=== PATIENT | female | born 1995 | race African-American/Black ===

== ENCOUNTER 2019-01-23 21:59 | Emergency (ER) | payer OTHER ==
[~2019-01-23] VITALS: Ht 160 cm; Wt 59.0 kg
[2019-01-24] MEDS ORDERED: KETOROLAC 60MG/2ML VIAL IM ONE (00:15)
[2019-01-24] MEDS ORDERED: LIDOCAINE HCL/PF 1% 10 MG/ML 5ML VIAL IJ ONE (00:15)
[2019-01-24] MEDS ORDERED: BACITRACIN ZINC OINT UDPKT TOP ONE (00:15)
[2019-01-24 01:14] VITALS: BP 115/71
== END 2019-01-24 01:21 | disposition home or self-care (01) ==
LOC: ER 22:37
DX: S01.511A Laceration without foreign body of lip, initial encounter (principal); J45.909 Unspecified asthma, uncomplicated; Y04.0XXA Assault by unarmed brawl or fight, initial encounter; Y93.89 Activity, other specified; Y92.524 Gas station as the place of occurrence of the external cause
CPT/HCPCS: 40650; 81025; 96372; 99283; J1885; J3490; Z7610

== ENCOUNTER 2020-12-19 01:14 | Emergency (ER) | payer MEDICAID ==
[~2020-12-19] VITALS: Ht 157.5 cm; Wt 73.0 kg
[2020-12-19] MEDS ORDERED: IBUP-2029 MT (01:33)
[2020-12-19] MEDS ORDERED: AMOX-494 MT (01:33)
[2020-12-19] MEDS ORDERED: IBUPROFEN 800MG TABLET PO ONE (01:45)
[2020-12-19] MEDS ORDERED: AMOXICILLIN 500 MG CAPSULE PO ONE (01:45)
[2020-12-19 02:45] VITALS: BP 121/74
== END 2020-12-19 02:45 | disposition home or self-care (01) ==
LOC: ER 01:14
DX: K02.9 Dental caries, unspecified (principal); K08.89 Other specified disorders of teeth and supporting structures; R22.0 Localized swelling, mass and lump, head; J45.909 Unspecified asthma, uncomplicated
CPT/HCPCS: 81025; 99283

== ENCOUNTER 2021-04-01 23:25 | Emergency (ER) | payer MEDICAID, OTHER ==
[~2021-04-01] VITALS: Ht 157.5 cm; Wt 75.0 kg
[~2021-04-01 23:25] MED LIST: AMOX-494 MT; IBUP-2029 MT
[2021-04-02] MEDS ORDERED: IBUP-2028 MT (00:03)
[2021-04-02] MEDS ORDERED: IBUPROFEN 400MG TABLET PO ONE (00:15)
[2021-04-02 00:45] VITALS: BP 115/55
== END 2021-04-02 00:44 | disposition home or self-care (01) ==
LOC: ER 23:25
DX: M54.5 Low back pain (principal); J45.909 Unspecified asthma, uncomplicated; Z79.899 Other long term (current) drug therapy
CPT/HCPCS: 99282

== ENCOUNTER 2021-08-04 11:24 | Emergency (ER) | payer OTHER ==
[~2021-08-04] VITALS: Ht 157.5 cm; Wt 73.0 kg
[~2021-08-04 11:24] MED LIST changes: +IBUP-2028 MT
[2021-08-04 11:28] VITALS: BP 133/90
[2021-08-04] MEDS ORDERED: IBUPROFEN 600MG TABLET PO STA (12:48)
[2021-08-04] MEDS ORDERED: P20 PO (13:35)
[2021-08-04] MEDS ORDERED: ALBU18HF2 IH (13:35)
[2021-08-04] MEDS ORDERED: ACET-2708 PO (13:35)
[2021-08-04] MEDS ORDERED: PREDNISONE 20MG TABLET PO STA (13:36)
[2021-08-04] MEDS ORDERED: ACETAMINOPHEN 325MG TABLET PO STA (13:36)
== END 2021-08-04 14:09 | disposition home or self-care (01) ==
LOC: ER 11:24
DX: U07.1 COVID-19 (principal)
CPT/HCPCS: 81025; 99283; C9803; J7512; U0003; U0005